=== PATIENT | female | born 1950 | race Caucasian/White ===

== ENCOUNTER 2017-11-17 12:07 | Emergency (ER) | payer MEDICARE, MEDICAID ==
[~2017-11-17] VITALS: Ht 160 cm; Wt 54.4 kg
[~2017-11-17 12:07] MED LIST: ACIDOPHILUS1 EAC3 PO; ADULTS' DAILY1 EACH PO; ALBUTEROL INHAL17 GM IH; AMBEREN PO; BENTYL 20 MG TA20 M1 PO; BENTYL20 MG PO; CELEXA 20 MG TA20 MG PO; CIPROFLOXACIN500 M3 PO; DIFICID200 MG PO; FIORICET; FIORICET PO; FISH OIL 500 M1 EACH PO; FLAGYL500 MG PO; HYDROCODON-ACE1 EAC7 PO; LIQUID B-11000 MCG/1 PO; MOM; MULTIVITAMIN; MULTIVITAMINS PO; NORCO 5-325 TA1 EACH PO; OCEAN45 ML NASAL; OMEGA-3 FISH1000 MG PO; OMEGA-31000 M1 PO; PHENERGAN 25 MG25 M1 PO; PREDNISONE50 MG PO; PRILOSEC 20 MG20 MG PO; RIFAMPIN 300 M300 M1; SOY50 MG PO; VALIUM2 MG; VALIUM5 MG; VALIUM5 MG PO; VANCOCIN 250 M250 M1 PO; VANCOMYCIN; VANCOMYCIN PO; VICODIN; VICODIN ES TAB1 EACH; VICODIN ES TAB1 EACH PO; VITAMIN D1000 UNI1; VITAMIN E1000 UNI3; ZOFRAN 4 MG ORAL4 M1 DIS; ZPAK PO; [UNRECOGNIZED DRUG - OTHER] PO
[2017-11-17 12:22] LABS: URINE BILIRUBIN NEGATIVE (Negative); URINE BLOOD 3+ (Negative); URINE CLARITY SL CLOUDY; URINE COLOR YELLOW; URINE GLUCOSE-RANDOM NEGATIVE (Negative); URINE KETONES NEGATIVE (Negative); URINE LEUKOCYTES-REFLEX 2+ (Negative); URINE NITRITE-REFLEX NEGATIVE (Negative); URINE PROTEIN TRACE (Negative); URINE UROBILINOGEN 0.2 E.U./dl (0.2-1.0)
[2017-11-17 12:31] LABS: CASTS None Seen /LPF (None Seen); CRYSTALS None Seen /LPF (None Seen); SQUAMOUS 4-10 Moderate /LPF (0-3)
[2017-11-17 12:32] LABS: BACTERIA-REFLEX 1-9 Few /HPF (None Seen); URINE RBC >20 Many /HPF (0-2); URINE WBC-REFLEX >25 Many /HPF (0-5)
[2017-11-17 12:42] LABS: ABSOLUTE BASOPHILS 0.1 thou/uL (0.0-0.2); ABSOLUTE LYMPHOCYTES 1.5 thou/uL (0.8-5.3); ABSOLUTE MONOCYTES 0.7 thou/uL (0.0-1.2); ABSOLUTE NEUTROPHILS 6.8 thou/uL (1.6-8.1); BASOPHILS 0.9 %; EOSINOPHILS 0.4 %; HEMATOCRIT 42.4 % (37.0-47.0); HEMOGLOBIN 14.4 gm/dL (12.0-15.0); LYMPHOCYTES 16.7 %; MCH 32.8 pg (26.0-34.0); MCHC 33.9 g/dL (28.0-37.0); MCV 96.9 fL (80.0-100.0); MONOCYTES 7.4 %; NUCLEATED RBCS 0 /100WBC; PLATELET COUNT* 247 thou/uL (150-400); POLYS 74.6 %; RBC 4.37 mil/uL (4.20-5.00); RDW-CV 13.2 % (10.5-14.5); WBC 9.1 thou/uL (4.0-11.0)
[2017-11-17 12:46] LABS: CALCIUM 8.9 mg/dL (8.5-10.1); CREATININE 0.8 mg/dL (0.6-1.3); POTASSIUM 3.9 mmol/L (3.5-5.1)
[2017-11-17 12:50] LABS: ALBUMIN 3.4 g/dL (3.4-5.0); TOTAL BILIRUBIN 0.2 mg/dL (<0.1-1.0); TOTAL PROTEIN 6.8 g/dL (6.4-8.2)
[2017-11-17] MEDS ORDERED: BACTRIM DS TAB1 EACH PO (12:57)
[2017-11-17] MEDS ORDERED: PHENAZOPYRIDIN200 M2 PO (12:57)
[2017-11-17] MEDS ORDERED: HYDROCODONE-AP1 EAC6 PO (13:09)
[2017-11-17 13:40] VITALS: BP 158/68
[2017-11-19] MEDS ORDERED: LAMICTAL100 MG PO (01:53)
[2017-11-21] MEDS ORDERED: ACIDOPHILUS1 EAC4 PO (15:47)
[2017-11-21] MEDS ORDERED: LEVAQUIN 500 M500 M2 PO (15:47)
== END 2017-11-17 13:42 | disposition home or self-care (01) ==
LOC: M.ERS 12:07
PROVIDERS: Physician Assistant
DX: N39.0 Urinary tract infection, site not specified (principal); F17.200 Nicotine dependence, unspecified, uncomplicated; Z90.710 Acquired absence of both cervix and uterus; Z90.49 Acquired absence of other specified parts of digestive tract; Z88.5 Allergy status to narcotic agent; Z88.8 Allergy status to other drugs, medicaments and biological substances